=== PATIENT | female | born 1985 | race Caucasian/White ===

== ENCOUNTER 2016-07-02 12:31 | Emergency (ER) | payer OTHER ==
[~2016-07-02 12:31] MED LIST: LAC PO; ZITHROMAX Z-PA250 MG PO
[2016-07-02 14:27] VITALS: BP 103/58
== END 2016-07-02 14:27 | disposition home or self-care (01) ==
LOC: ED 12:31
DX: B34.9 Viral infection, unspecified (principal); R07.89 Other chest pain